=== PATIENT | female | born 1990 | race Caucasian/White ===

== ENCOUNTER 2018-02-17 08:10 | Inpatient (IN) | END 2018-02-20 22:05 | disposition home or self-care (01) | DRG 833 ==

== ENCOUNTER 2018-03-15 11:48 | Emergency (ER) | payer MEDICAID ==
[~2018-03-15] VITALS: Ht 167.6 cm; Wt 76.0 kg
[2018-03-15 11:57] VITALS: BP 133/71; PULSE 88; RESP 20; Ht 167.6 cm; Wt 76.0 kg
--- NOTE | 2018-03-15 16:21 | ERD ---
ER Documentation Chief Complaint Chief Complaint Complains of vag bleed and HPI Patient is a 27-year-old female, G4, P1, A2, presents to the ER for concerns of vaginal bleeding which started earlier today. Patient reports using paper tissues thus far. Patient denies any pads. Patient denies any blood clot passage. Patient denies any fevers or chills. Patient denies any pain. Patient denies dysuria, urgency, urgency or hematuria. Patient denies any nausea or vomiting. Patient states her last menstrual period was on 01/01/18. ROS All systems reviewed and are negative except as per history of present illness. Medications Home Meds No Active Prescriptions or Reported Meds Allergies Allergies: Coded Allergies: No Known Drug Allergy (Verified Allergy, Unknown, 02/17/18) PMhx/Soc Medical and Surgical Hx: pt denies Medical Hx, pt denies Surgical Hx Hx Alcohol Use: No Hx Substance Use: No Hx Tobacco Use: No Smoking Status: Never smoker Physical Exam Vitals Vital Signs Date Temp Pulse Resp B/P (MAP) Pulse Ox O2 O2 Flow FiO2 Time Delivery Rate 03/15/18 99.1 88 20 133/71 98 11:57 (91) Physical Exam GENERAL: Well-developed, well-nourished female. Appears in no acute distress. HEAD: Normocephalic, atraumatic. EYES: Pupils are equally reactive bilaterally. EOMs grossly intact. No conjunctival erythema. ENT: Moist mucous membranes. No uvula deviation. No kissing tonsils. NECK: Supple. No meningismus. Normal range of motion of the neck. LUNG: Clear to auscultation bilaterally. No rhonchi, wheezing, rales or coarse breath sounds. HEART: Regular rate and rhythm. No murmurs, rubs or gallops. ABDOMEN: Soft, nontender, and nondistended. Positive bowel sounds in all four quadrants. No rebound tenderness, no guarding. (-) McBurney's point tenderness. No CVA tenderness. EXTREMITIES: Equal pulses bilaterally. No peripheral clubbing, cyanosis or edema. No unilateral leg swelling. NEUROLOGIC: Alert and oriented. Moving all four extremities without any difficulty. Normal speech. Steady gait. SKIN: Normal color. Warm and dry. No rashes or lesions. Result Diagram: 03/15/18 1440 Results 24 hrs Laboratory Tests Test 03/15/18 14:40 White Blood Count 8.1 10^3/ul Red Blood Count 4.79 10^6/ul Hemoglobin 13.0 g/dl Hematocrit 39.3 % Mean Corpuscular Volume 82.0 fl Mean Corpuscular Hemoglobin 27.1 pg Mean Corpuscular Hemoglobin Concent 33.1 g/dl Red Cell Distribution Width 13.0 % Platelet Count 262 10^3/UL Mean Platelet Volume 9.6 fl Immature Granulocytes % 0.200 % Neutrophils % 72.1 % Lymphocytes % 19.0 % Monocytes % 7.4 % Eosinophils % 0.9 % Basophils % 0.4 % Nucleated Red Blood Cells % 0.0 /100WBC Immature Granulocytes # 0.020 10^3/ul Neutrophils # 5.8 10^3/ul Lymphocytes # 1.5 10^3/ul Monocytes # 0.6 10^3/ul Eosinophils # 0.1 10^3/ul Basophils # 0.0 10^3/ul Nucleated Red Blood Cells # 0.0 10^3/ul Urine Color YELLOW Urine Clarity CLEAR Urine pH 5.0 Urine Specific [place] 1.014 Urine Ketones NEGATIVE mg/dL Urine Nitrite NEGATIVE mg/dL Urine Bilirubin NEGATIVE mg/dL Urine Urobilinogen NEGATIVE mg/dL Urine Leukocyte Esterase NEGATIVE Reena/ul Urine Microscopic RBC 1 /HPF Urine Microscopic WBC 1 /HPF Urine Squamous Epithelial Cells FEW /HPF Urine Hemoglobin 2+ mg/dL Urine Glucose 1+ mg/dL Urine Total Protein NEGATIVE mg/dl Beta HCG, Quantitative 48231.0 mIU/ml Procedures/MDM ED COURSE: The patient was stable throughout ED course. I kept the patient and/or family informed of laboratory and diagnostic imaging results throughout the ED course. DIAGNOSTIC IMAGING: Read by radiologist. Patient: AKILAH CHAMBERS : 1990 Age: 27 Sex: F MR #: [id number] DOS: 03/15/18 0000 Ordering MD: KIRILL RASHID PA-C Location: [facility] Room/Bed: PROCEDURE: US OB. CLINICAL INDICATION: Vaginal bleeding. TECHNIQUE: Transabdominal sonographic evaluation of the uterus was performed. COMPARISON: Obstetrical sonogram dated 02/17/2018. FINDINGS: There is a single living intrauterine gestation. Mean sac diameter measures 39.4 mm. [place] rump length measures 31.7 mm. Estimated gestational age based on this examination is 9 weeks and 5 days +/- 5 days. Real time examination shows cardiac activity. heart rate is 157 beats per minute. Estimated date of confinement based on this examination is 10/13/2018. There is a 5 mm subchorionic hemorrhage. Right ovary measures 2.8 x 2.3 x 2.5 cm. Left ovary measures 2.1 x 1.8 x 2.1 cm. Normal vascular waveforms were sampled from both ovaries. There is no free pelvic fluid. IMPRESSION: 1. Single living intrauterine gestation with estimated gestational age of 9 weeks and 5 days +/- 5 days. 2. Small subchorionic hemorrhage. RPTAT:AAEE Physician Mike Date Time Electronically viewed and signed by Wolfgang Bell Physician on 03/15/2018 16:00 RM/ CC: KIRILL RASHID PA-C [id number] MEDICAL DECISION MAKING: This 27-year-old female, G4, P1, A2, presents to the ER for concerns of vaginal bleeding which started earlier today. Patient denies any blood clot passage.. Vital signs were reviewed. Patient was afebrile. Patient was hemodynamically stable. Urine test was positive. [place] 55370. Patient's blood type was noted to be O+. No indication for RhoGam. CBC showed no evidence of systemic infection or severe anemia. Pelvic ultrasound showed 1. Single living intrauterine gestation with estimated gestational age of 9 weeks and 5 days +/- 5 days. 2. Small subchorionic hemorrhage. Given these findings, the patients presentation is most consistent with threatened and small subchorionic hemorrhage.. I have a much lower clinical concern for ectopic , ruptured ectopic , molar , subchorionic hematoma, incomplete , complete , missed , placental abruption, placental previa, vasa previa, uterine rupture, anembyronic . Patient was advised she will need to follow-up with an ETL INFORMATICA DEVELOPER in the next 1-2 days. Patient stated that she did have an appointment tomorrow. DISCHARGE: At this time, patient is stable for discharge and outpatient management. I had a conversation at length with the patient about the concerns of vaginal bleeding during the 1st trimester of . Patient and/or family understands that her vaginal bleeding can be a normal finding or a sign of miscarriage. I have instructed the patient to follow-up with her OBGYN in 1-2 days for further monitoring including a repeat b-HCG level. I have instructed the patient to promptly return to the ER at any time for any new or worsening symptoms including increased pain, nausea, vomiting, continued bleeding, weakness, syncope or fever. The patient and/or family expressed understanding of and agreement with this plan. All questions were answered. Home care instructions were provided. Disclaimer: Inadvertent spelling and grammatical errors are likely due to EHR/dictation software use and do not reflect on the overall quality of patient care. Also, please note that the electronic time recorded on this note does not necessarily reflect the actual time of the patient encounter. Departure Diagnosis: Primary Impression: Vaginal bleeding in patient at less than 20 weeks ges... Condition: Stable Patient Instructions: Bleeding During Early Referrals: COMMUNITY CLINICS YOU HAVE RECEIVED A MEDICAL SCREENING EXAM AND THE RESULTS INDICATE THAT YOU DO NOT HAVE A CONDITION THAT REQUIRES URGENT TREATMENT IN THE EMERGENCY DEPARTMENT. FURTHER EVALUATION AND TREATMENT OF YOUR CONDITION CAN WAIT UNTIL YOU ARE SEEN IN YOUR DOCTORS OFFICE WITHIN THE NEXT 1-2 DAYS. IT IS YOUR RESPONSIBILITY TO MAKE AN APPOINTMENT FOR FOLOW-UP CARE. IF YOU HAVE A PRIMARY DOCTOR --you should call your primary doctor and schedule an appointment IF YOU DO NOT HAVE A PRIMARY DOCTOR YOU CAN CALL OUR PHYSICIAN REFERRAL HOTLINE AT IF YOU CAN NOT AFFORD TO SEE A PHYSICIAN YOU CAN CHOSE FROM THE FOLLOWING [facility] [address] [facility]. [facility] [address] [facility] [address] [facility]. [facility] [address] [facility]. [facility] [address] [facility]. [facility]. [address] [facility]. [facility] YOU HAVE RECEIVED A MEDICAL SCREENING EXAM AND THE RESULTS INDICATE THAT YOU DO NOT HAVE A CONDITION THAT REQUIRES URGENT TREATMENT IN THE EMERGENCY DEPARTMENT. FURTHER EVALUATION AND TREATMENT OF YOUR CONDITION CAN WAIT UNTIL YOU ARE SEEN IN YOUR DOCTORS OFFICE WITHIN THE NEXT 1-2 DAYS. IT IS YOUR RESPONSIBILITY TO MAKE AN APPOINTMENT FOR FOLOW-UP CARE. IF YOU HAVE A PRIMARY DOCTOR --you should call your primary doctor and schedule and appointment IF YOU DO NOT HAVE A PRIMARY DOCTOR YOU CAN CALL OUR PHYSICIAN REFERRAL HOTLINE AT . IF YOU CAN NOT AFFORD TO SEE A PHYSICIAN YOU CAN CHOSE FROM THE FOLLOWING [facility] INSTITUTIONS: [facility] [address] [place] [address] [facility] [address] [place] [address] [facility] [address] [place] [address] [employer] [address] [facility] [address] [place] [address] OFFICE FAX ALONZO SAHIKH [address] [place] [address] [facility] [address] [place] [address] VINICIO BAUTISTA [address] [facility], [address], [facility] [address] [address] [address] [place] [address] [facility] [address] [place] [address] [phone] [facility] [address] - [place] [address]MON [address], [place] [address] BRINDA PHELPS [address] [facility] [address] [place] [address] [address] [address] [place] [address] Additional Instructions: Call your primary care doctor TOMORROW for an appointment during the next 1-2 days.See the doctor sooner or return here if your condition worsens before your appointment time. Repeat beta-hCG advised in 2 days. Follow-up with your ETL INFORMATICA DEVELOPER. KIRILL RASHID PA-C Mar 15, 2018 16:21
== END 2018-03-15 16:32 | disposition home or self-care (01) ==
LOC: FTE 11:48
DX: O20.9 Hemorrhage in early pregnancy, unspecified (principal); Z3A.09 9 weeks gestation of pregnancy
CPT/HCPCS: 36415; 76801; 76817; 81001; 84702; 85025; 86900; 86901; Z7502

== ENCOUNTER 2018-07-14 15:28 | Outpatient (CLI) | payer MEDICAID, OTHER ==
[~2018-07-14] VITALS: Ht 157.5 cm; Wt 84.1 kg
[2018-07-14 17:35] VITALS: Ht 157.5 cm; Wt 84.1 kg
[2018-07-14] MEDS ORDERED: PNV11TAB PO (17:35)
[2018-07-14 17:36] VITALS: BP 100/56; PULSE 71; RESP 19
--- NOTE | 2018-07-15 00:57 | TRIAGE ---
OB Triage Datetime Report Generated by CPN: 07/15/2018 00:57 Datetime: 07/14/2018 23:06 Labor Evaluation Frequency: 0 Monitor Mode: External Pattern: Normal: <= 5 Contractions in 10 Minutes Heart Rate FHR Baseline Rate: 145 Monitor Mode: External US Variability: Moderate 6-25 bpm Accelerations: 15X15 Decelerations: None Datetime: 07/14/2018 23:00 Labor Evaluation Frequency: 0 Monitor Mode: External Pattern: Normal: <= 5 Contractions in 10 Minutes Heart Rate FHR Baseline Rate: 150 Monitor Mode: External US Variability: Moderate 6-25 bpm Accelerations: 15X15 Decelerations: None Category: Category I Datetime: 07/14/2018 22:42 Monitor Mode: External US Datetime: 07/14/2018 22:00 Monitor Mode: External Pattern: Normal: <= 5 Contractions in 10 Minutes Monitor Mode: External US Comments: LOSS OF CONTACT Datetime: 07/14/2018 21:00 Labor Evaluation Frequency: 0 Monitor Mode: External Pattern: Normal: <= 5 Contractions in 10 Minutes Heart Rate FHR Baseline Rate: 145 Monitor Mode: External US Variability: Moderate 6-25 bpm Accelerations: 10X10 Decelerations: None Category: Category I Datetime: 07/14/2018 20:00 Labor Evaluation Frequency: 0 Monitor Mode: External Pattern: Normal: <= 5 Contractions in 10 Minutes Heart Rate FHR Baseline Rate: 145 Monitor Mode: External US Variability: Moderate 6-25 bpm Accelerations: 10X10 Decelerations: None Datetime: 07/14/2018 19:28 Vaginal Exam Membrane Status: Intact Datetime: 07/14/2018 18:28 Labor Evaluation Frequency: 0 Monitor Mode: External Pattern: Normal: <= 5 Contractions in 10 Minutes Resting Tone Peck: Relaxed Heart Rate FHR Baseline Rate: 145 Monitor Mode: External US Variability: Moderate 6-25 bpm Accelerations: 15X15 Decelerations: None Category: Category I Datetime: 07/14/2018 17:54 Assessment Type: Triage Maternal Assessment Level of Consciousness: Fully Conscious DTR's/Clonus: DTRs 2+; No Clonus Headache: Denies Blurred Vision: No Respiratory Effort: Unlabored; Regular Rhythm; Equal Expansion Breath Sounds, Left: Clear and Equal Breath Sounds, Right: Clear and Equal Nausea/Vomiting: Denies RUQ Epigastric Pain: Denies Lower Extremities Edema: None Degree: None Upper Extremities Edema: None Degree: None Facial Edema: None Fall Risk Assessment History of Falling: (0) No Secondary Diagnosis: (0) No Ambulatory Aid: (0) Bedrest/Nurse Assist IV Therapy: (0) No Gait: (0) Normal/Bedrest/Immobile Mental Status: (0) Oriented to Own Ability Fall Score: 0 Fall Risk Score Definition: No Risk: No action required Datetime: 07/14/2018 17:53 Time of Arrival: 07/14/2018 15:09 EGA: 27.4 Arrived By: Ambulatory Arrived From: Home Chief Complaint: dizziness Movement: Decreased Contractions: Denies/Absent Rupture of Membranes: Denies Vaginal Bleeding: None Vaginal Discharge: Denies Recent Sexual Intercouse: Denies Abdominal Trauma: Not Applicable Patient Complaints: Other Time Provider Notified: 07/14/2018 18:01 Provider Notified: dr turner Initial Plan: nst bpp, EKG Datetime: 07/14/2018 17:52 Labor Evaluation Frequency: 0 Pattern: Normal: <= 5 Contractions in 10 Minutes Resting Tone Peck: Relaxed Heart Rate FHR Baseline Rate: 140 Monitor Mode: External US Variability: Moderate 6-25 bpm Accelerations: 15X15 Decelerations: None Category: Category I Datetime: 02/20/2018 19:58 Bedside Blood Glucose: 143 Datetime: 02/20/2018 19:20 Assessment Type: Ongoing Assessment Maternal Assessment Level of Consciousness: Fully Conscious Headache: Denies Blurred Vision: No Respiratory Effort: Unlabored; Regular Rhythm; Equal Expansion Nausea/Vomiting: Denies RUQ Epigastric Pain: Denies Lower Extremities Edema: None Upper Extremities Edema: None Facial Edema: None Fall Risk Assessment History of Falling: (0) No Secondary Diagnosis: (0) No Ambulatory Aid: (0) Bedrest/Nurse Assist IV Therapy: (0) No Gait: (0) Normal/Bedrest/Immobile Mental Status: (0) Oriented to Own Ability Fall Score: 0 Fall Risk Score Definition: No Risk: No action required Datetime: 02/20/2018 19:17 Temperature Route: Oral Pain Assessment Pain Scale: 0 Datetime: 02/20/2018 17:57 Bedside Blood Glucose: 156 Datetime: 02/20/2018 17:17 Bedside Blood Glucose: 156 Datetime: 02/20/2018 14:57 Bedside Blood Glucose: 206 Datetime: 02/20/2018 12:00 Bedside Blood Glucose: 75 Datetime: 02/20/2018 10:28 Bedside Blood Glucose: 119 Datetime: 02/20/2018 07:30 Maternal Assessment Level of Consciousness: Fully Conscious DTR's/Clonus: DTRs 2+; No Clonus Headache: Denies Blurred Vision: No Respiratory Effort: Unlabored; Regular Rhythm; Equal Expansion Breath Sounds, Left: Clear and Equal Breath Sounds, Right: Clear and Equal Nausea/Vomiting: Denies RUQ Epigastric Pain: Denies Facial Edema: None Bedside Blood Glucose: 115 Fall Risk Assessment History of Falling: (0) No Secondary Diagnosis: (0) No Ambulatory Aid: (0) Bedrest/Nurse Assist Gait: (0) Normal/Bedrest/Immobile Mental Status: (0) Oriented to Own Ability Datetime: 02/19/2018 20:59 Bedside Blood Glucose: 137 Datetime: 02/19/2018 20:00 Assessment Type: Ongoing Assessment Maternal Assessment Level of Consciousness: Fully Conscious Headache: Denies Blurred Vision: No Respiratory Effort: Unlabored; Regular Rhythm; Equal Expansion Nausea/Vomiting: Denies RUQ Epigastric Pain: Denies Lower Extremities Edema: None Upper Extremities Edema: None Facial Edema: None Fall Risk Assessment History of Falling: (0) No Secondary Diagnosis: (0) No Ambulatory Aid: (0) Bedrest/Nurse Assist IV Therapy: (0) No Gait: (0) Normal/Bedrest/Immobile Mental Status: (0) Oriented to Own Ability Fall Score: 0 Fall Risk Score Definition: No Risk: No action required Datetime: 02/19/2018 19:55 Temperature Route: Oral Pain Assessment Pain Scale: 0 Datetime: 02/19/2018 18:34 Stage of : Antepartum Maternal Assessment Level of Consciousness: Fully Conscious Headache: Denies Nausea/Vomiting: Denies Pain Presence: None/Denies Datetime: 02/19/2018 17:59 Maternal Assessment Level of Consciousness: Fully Conscious Headache: Denies Blurred Vision: No Respiratory Effort: Unlabored Nausea/Vomiting: Denies Bedside Blood Glucose: 133 Datetime: 02/19/2018 16:54 Stage of : Antepartum Maternal Assessment Level of Consciousness: Fully Conscious Headache: Denies Nausea/Vomiting: Denies Temperature Route: Oral Contraction Comments: pt. denies Pain Assessment Pain Scale: 0 Pain Presence: None/Denies Vaginal Bleeding: None Datetime: 02/19/2018 16:00 Stage of : Antepartum Maternal Assessment Level of Consciousness: Fully Conscious Headache: Denies Nausea/Vomiting: Denies Pain Presence: None/Denies Datetime: 02/19/2018 15:01 Maternal Assessment Level of Consciousness: Fully Conscious Headache: Denies Blurred Vision: No Respiratory Effort: Unlabored Nausea/Vomiting: Denies Bedside Blood Glucose: 171 Pain Presence: None/Denies Datetime: 02/19/2018 13:05 Maternal Assessment Level of Consciousness: Fully Conscious Headache: Denies Blurred Vision: No Respiratory Effort: Unlabored Nausea/Vomiting: Denies RUQ Epigastric Pain: Denies Bedside Blood Glucose: 116 Pain Presence: None/Denies Datetime: 02/19/2018 13:00 Stage of : Antepartum Maternal Assessment Level of Consciousness: Fully Conscious Headache: Denies Nausea/Vomiting: Denies Pain Presence: None/Denies Datetime: 02/19/2018 12:05 Stage of : Antepartum Maternal Assessment Level of Consciousness: Fully Conscious Headache: Denies Nausea/Vomiting: Denies Pain Presence: None/Denies Datetime: 02/19/2018 11:00 Stage of : Antepartum Maternal Assessment Level of Consciousness: Fully Conscious Headache: Denies Nausea/Vomiting: Denies Pain Presence: None/Denies Datetime: 02/19/2018 10:46 Maternal Assessment Level of Consciousness: Fully Conscious Headache: Denies Blurred Vision: No Respiratory Effort: Unlabored Nausea/Vomiting: Denies Bedside Blood Glucose: 164 Resting Tone Peck: Relaxed Pain Presence: None/Denies Datetime: 02/19/2018 09:30 Stage of : Antepartum Maternal Assessment Level of Consciousness: Fully Conscious Headache: Denies Nausea/Vomiting: Denies Pain Presence: None/Denies Datetime: 02/19/2018 08:53 Pain Presence: None/Denies Datetime: 02/19/2018 08:04 Maternal Assessment Level of Consciousness: Fully Conscious Headache: Denies Blurred Vision: No Respiratory Effort: Unlabored Breath Sounds, Left: Clear and Equal Breath Sounds, Right: Clear and Equal Nausea/Vomiting: Denies RUQ Epigastric Pain: Denies Bedside Blood Glucose: 146 Pain Presence: None/Denies Datetime: 02/19/2018 07:16 Assessment Type: Ongoing Assessment Datetime: 02/19/2018 06:13 Stage of : Antepartum Datetime: 02/19/2018 06:10 Stage of : Antepartum Datetime: 02/19/2018 06:04 Stage of : Antepartum Datetime: 02/19/2018 05:03 Stage of : Antepartum Temperature Route: Oral Pain Presence: None/Denies Pain Type: N/A Pain Assessment Comments: PT SLEEPING BUT EASILY AROUSED Datetime: 02/19/2018 02:00 Stage of : Antepartum Pain Presence: None/Denies Pain Type: N/A Pain Assessment Comments: PT SLEEPING WITH EVEN UNLABORED BREATHING Datetime: 02/19/2018 00:12 Stage of : Antepartum Pain Presence: None/Denies Pain Type: N/A Pain Assessment Comments: Pt denies any needs at this time. Datetime: 02/18/2018 22:00 Stage of : Antepartum Pain Presence: None/Denies Pain Type: N/A Pain Assessment Comments: PT DENIES ANY NEEDS AT THIS TIME Datetime: 02/18/2018 19:55 Stage of : Antepartum Datetime: 02/18/2018 19:45 Stage of : Antepartum Bedside Blood Glucose: 202 Datetime: 02/18/2018 19:42 Stage of : Antepartum Assessment Type: Ongoing Assessment Maternal Assessment Level of Consciousness: Fully Conscious DTR's/Clonus: DTRs 2+; No Clonus Headache: Denies Blurred Vision: No Respiratory Effort: Unlabored; Regular Rhythm; Equal Expansion Breath Sounds, Left: Clear and Equal Breath Sounds, Right: Clear and Equal Nausea/Vomiting: Denies RUQ Epigastric Pain: Denies Lower Extremities Edema: None Degree: None Upper Extremities Edema: None Degree: None Facial Edema: None Temperature Route: Oral Fall Risk Assessment History of Falling: (0) No Secondary Diagnosis: (0) No Ambulatory Aid: (0) Bedrest/Nurse Assist IV Therapy: (0) No Gait: (0) Normal/Bedrest/Immobile Mental Status: (0) Oriented to Own Ability Fall Score: 0 Fall Risk Score Definition: No Risk: No action required Pain Presence: None/Denies Datetime: 02/18/2018 18:31 Stage of : Antepartum Maternal Assessment Level of Consciousness: Fully Conscious Headache: Denies Nausea/Vomiting: Denies RUQ Epigastric Pain: Denies Pain Presence: None/Denies Datetime: 02/18/2018 17:41 Stage of : Antepartum Maternal Assessment Level of Consciousness: Fully Conscious Headache: Denies Nausea/Vomiting: Denies Pain Assessment Pain Scale: 0 Pain Presence: None/Denies Vaginal Bleeding: None Datetime: 02/18/2018 16:00 Stage of : Antepartum Maternal Assessment Level of Consciousness: Fully Conscious Headache: Denies Nausea/Vomiting: Denies RUQ Epigastric Pain: Denies Pain Presence: None/Denies Datetime: 02/18/2018 15:00 Stage of : Antepartum Maternal Assessment Level of Consciousness: Fully Conscious Headache: Denies Nausea/Vomiting: Denies RUQ Epigastric Pain: Denies Pain Presence: None/Denies Datetime: 02/18/2018 14:49 Stage of : Antepartum Datetime: 02/18/2018 14:00 Stage of : Antepartum Maternal Assessment Level of Consciousness: Fully Conscious Headache: Denies Nausea/Vomiting: Denies RUQ Epigastric Pain: Denies Pain Presence: None/Denies Datetime: 02/18/2018 13:41 Maternal Assessment Level of Consciousness: Fully Conscious Headache: Denies Blurred Vision: No Respiratory Effort: Unlabored Nausea/Vomiting: Denies Pain Presence: None/Denies Datetime: 02/18/2018 13:00 Stage of : Antepartum Maternal Assessment Level of Consciousness: Fully Conscious Headache: Denies Nausea/Vomiting: Denies RUQ Epigastric Pain: Denies Pain Presence: None/Denies Datetime: 02/18/2018 11:57 Stage of : Antepartum Maternal Assessment Level of Consciousness: Fully Conscious Headache: Denies Nausea/Vomiting: Denies RUQ Epigastric Pain: Denies Pain Assessment Pain Scale: 0 Pain Presence: None/Denies Vaginal Bleeding: None Datetime: 02/18/2018 11:19 Stage of : Antepartum Maternal Assessment Level of Consciousness: Fully Conscious Headache: Denies Nausea/Vomiting: Denies Pain Assessment Pain Scale: 0 Pain Presence: None/Denies Vaginal Bleeding: None Datetime: 02/18/2018 10:09 Stage of : Antepartum Maternal Assessment Level of Consciousness: Fully Conscious Headache: Denies Nausea/Vomiting: Denies RUQ Epigastric Pain: Denies Pain Presence: None/Denies Datetime: 02/18/2018 09:25 Stage of : Antepartum Maternal Assessment Level of Consciousness: Fully Conscious Headache: Denies Nausea/Vomiting: Denies RUQ Epigastric Pain: Denies Pain Presence: None/Denies Datetime: 02/18/2018 07:44 Stage of : Antepartum Maternal Assessment Level of Consciousness: Fully Conscious Headache: Denies Nausea/Vomiting: Denies RUQ Epigastric Pain: Denies Temperature Route: Oral Bedside Blood Glucose: 191 Resting Tone Peck: Relaxed Comments: ega 6.5 Pain Assessment Pain Scale: 0 Pain Presence: None/Denies Vaginal Bleeding: None Datetime: 02/18/2018 07:12 Stage of : Antepartum Maternal Assessment Level of Consciousness: Fully Conscious Headache: Denies Blurred Vision: No Respiratory Effort: Unlabored Nausea/Vomiting: Denies RUQ Epigastric Pain: Denies Pain Presence: None/Denies Datetime: 02/18/2018 06:10 Stage of : Antepartum Datetime: 02/18/2018 05:09 Stage of : Antepartum Temperature Route: Oral Pain Presence: None/Denies Pain Type: N/A Pain Assessment Comments: PT DENIES ANY NEEDS AT THIS TIME Datetime: 02/18/2018 04:00 Stage of : Antepartum Pain Presence: None/Denies Pain Type: N/A Pain Assessment Comments: PT SLEEPING BUT EASILY AROUSED Datetime: 02/18/2018 02:20 Stage of : Antepartum Pain Presence: None/Denies Pain Type: N/A Pain Assessment Comments: PT SLEEPING BUT EASILY AROUSED. PT DENIES ANY NEEDS AT THIS TIME. Datetime: 02/18/2018 00:45 Stage of : Antepartum Pain Presence: None/Denies Pain Type: N/A Pain Assessment Comments: PT SLEEPING WITH EVEN UNLABORED BREATHING. Datetime: 02/17/2018 23:21 Stage of : Antepartum Temperature Route: Oral Pain Presence: None/Denies Pain Type: N/A Pain Assessment Comments: PT DENIES ANY NEEDS AT THIS TIME. Datetime: 02/17/2018 22:26 Stage of : Antepartum Datetime: 02/17/2018 22:17 Stage of : Antepartum Bedside Blood Glucose: 141 Datetime: 02/17/2018 20:15 Stage of : Antepartum Datetime: 02/17/2018 20:03 Stage of : Antepartum Bedside Blood Glucose: 202 Datetime: 02/17/2018 19:59 Stage of : Antepartum Assessment Type: Ongoing Assessment Maternal Assessment Level of Consciousness: Fully Conscious DTR's/Clonus: DTRs 2+; No Clonus Headache: Denies Blurred Vision: No Respiratory Effort: Unlabored; Regular Rhythm; Equal Expansion Breath Sounds, Left: Clear and Equal Breath Sounds, Right: Clear and Equal Nausea/Vomiting: Denies RUQ Epigastric Pain: Denies Lower Extremities Edema: None Degree: None Upper Extremities Edema: None Degree: None Facial Edema: None Temperature Route: Oral Fall Risk Assessment History of Falling: (0) No Secondary Diagnosis: (0) No Ambulatory Aid: (0) Bedrest/Nurse Assist IV Therapy: (0) No Gait: (0) Normal/Bedrest/Immobile Mental Status: (0) Oriented to Own Ability Fall Score: 0 Fall Risk Score Definition: No Risk: No action required Pain Presence: None/Denies Pain Type: N/A Datetime: 02/17/2018 19:30 Stage of : Antepartum Datetime: 02/17/2018 10:51 EGA: 6.4 Datetime: 02/17/2018 10:50 EGA: -3.2 Datetime: 02/17/2018 08:54 Assessment Type: Admission Assessment Vaginal Bleeding: None Maternal Assessment Level of Consciousness: Fully Conscious DTR's/Clonus: DTRs 2+; No Clonus Headache: Denies Blurred Vision: No Respiratory Effort: Unlabored; Regular Rhythm; Equal Expansion Breath Sounds, Left: Clear and Equal Breath Sounds, Right: Clear and Equal Nausea/Vomiting: Denies RUQ Epigastric Pain: Denies Facial Edema: None Fall Risk Assessment History of Falling: (0) No Secondary Diagnosis: (0) No Ambulatory Aid: (0) Bedrest/Nurse Assist IV Therapy: (0) No Gait: (0) Normal/Bedrest/Immobile Mental Status: (0) Oriented to Own Ability Fall Score: 0 Fall Risk Score Definition: No Risk: No action required Pain Assessment Pain Scale: 0 Datetime: 02/17/2018 08:51 Time of Arrival: 02/17/2018 08:25 Arrived By: Ambulatory
--- NOTE | 2018-07-15 08:58 | PN ---
Triage Information Date/Time 07/14/2018 Reason for visit: DFM Weeks of Gestation 27 weeks and 4 days /Para 4 para 1 Diabetes: none Hypertention: none Additional information 27-year-old G4, P1 with IUP at 27 weeks and 4 days presents with complaint of decreased movement, dizziness, numbness and tingling around the mouth and hands. Objective Vital Signs Date Temp Pulse Resp B/P (MAP) Pulse Ox O2 O2 Flow FiO2 Time Delivery Rate 07/14/18 97.7 71 19 100/56 Room Air 17:36 (71) Heart Rate: 130's Contractions: None Exam General Appearance: Alert and oriented x4 does not appear to be in any acute distress Abdomen: Soft, gravid, fundal height consider gestational age, no tenderness, no rebound tenderness, no guarding, no rigidity Neuro exam: All 12 cranial nerves are within normal limits Extremities:: No calf tenderness, no click no edema no cord palpable Results/Medications Result Diagram: 07/14/18 1823 07/14/18 1823 Results 24 hrs Laboratory Tests Test 07/14/18 17:00 07/14/18 18:23 Urine Color YELLOW Urine Clarity SLIGHTLY CLOUDY A Urine pH 6.0 Urine Specific [place] 1.020 Urine Ketones TRACE A Urine Nitrite NEGATIVE Urine Bilirubin NEGATIVE Urine Urobilinogen NEGATIVE Urine Leukocyte Esterase NEGATIVE Urine Microscopic RBC 2 Urine Microscopic WBC 2 Urine Bacteria FEW A Urine Mucus FEW A Urine Hemoglobin NEGATIVE Urine Glucose 1+ H Urine Total Protein 2+ H White Blood Count 10.8 # Red Blood Count 4.17 L Hemoglobin 11.5 L Hematocrit 34.8 L Mean Corpuscular Volume 83.5 Mean Corpuscular Hemoglobin 27.6 L Mean Corpuscular Hemoglobin Concent 33.0 Red Cell Distribution Width 12.4 Platelet Count 330 # Mean Platelet Volume 9.6 Immature Granulocytes % 0.500 H Neutrophils % 78.1 H Lymphocytes % 16.0 Monocytes % 4.7 Eosinophils % 0.4 Basophils % 0.3 Nucleated Red Blood Cells % 0.0 Immature Granulocytes # 0.050 H Neutrophils # 8.5 H Lymphocytes # 1.7 Monocytes # 0.5 Eosinophils # 0.0 Basophils # 0.0 Nucleated Red Blood Cells # 0.0 Sodium Level 138 Potassium Level 4.2 Chloride Level 108 Carbon Dioxide Level 22 Anion Gap 8 Blood Urea Nitrogen 10 Creatinine 0.47 Est Glomerular Filtrat Rate mL/min > 60 Glucose Level 114 Uric Acid 5.0 Calcium Level 8.9 Total Bilirubin 0.2 Direct Bilirubin 0.00 Indirect Bilirubin 0.2 Aspartate Amino Transf (AST/SGOT) 32 Alanine Aminotransferase (ALT/SGPT) 24 Alkaline Phosphatase 153 H Total Protein 7.2 Albumin 3.4 Globulin 3.80 H Albumin/Globulin Ratio 0.89 Imaging Results PROCEDURE: US OB. CLINICAL INDICATION: Syncope TECHNIQUE: Multiple sonographic images of the pelvis were obtained. The images were reviewed on a PACS workstation. COMPARISON: 03/15/2018 FINDINGS: There is a single live intrauterine . cardiac activity is identi fied at a rate of 140 beats per minute. presentation is cephalic. Placenta is anterior grade 1. Biophysical profile score is as follows: Breathing 2 Movements 2 Tone 2 Fluid volume 2 Amniotic fluid index = 11.8 cm Total biophysical profile score = 8/8 IMPRESSION: Biophysical profile score = 8/8 RPTAT: HH Disposition: Discharge Assessment/Plan IUP at 27 weeks and 4 days Dizziness, numbness, unclear etiology. Symptoms resolved. No evidence of PIH. Blood pressure during monitoring are all normal. PIH panel were negative. Patient was given strict labor precaution, kick count precaution and follow-up with primary OB office within 1 to 2 days after discharge from the hospital All questions were answered to patient with satisfaction. Patient verbalized understanding. She understands importance of follow-up within 2 days with OB office for follow-up assessment. Currently asymptomatic and all symptoms resolved. No evidence of neurological symptoms. She was discharged home in stable condition. EUNICE MONSON MD July 15, 2018 08:58
--- NOTE | 2018-07-15 19:11 | RADRPT ---
Vent Rate: 78 bpm RR Interval: 0 msec WY Interval: 136 msec QRS Duration: 82 msec QT Interval: 392 msec QTC Interval: 446 msec P-R-T [place]: 34 - 39 - 21 degrees Normal sinus rhythm Normal ECG Electronically Signed By: Sarwat Willis
== END 2018-07-14 23:15 | disposition home or self-care (01) ==
LOC: OBT 15:28 → L-D 15:29 → OBT 23:15
PROVIDERS: ATTEND Obstetrics & Gynecology
DX: O36.8120 Decreased fetal movements, second trimester, not applicable or unspecified (principal); O26.892 Other specified pregnancy related conditions, second trimester; R42 Dizziness and giddiness; R20.0 Anesthesia of skin; R20.2 Paresthesia of skin; Z3A.27 27 weeks gestation of pregnancy
CPT/HCPCS: 76818; 80053; 81001; 84560; 85025; 93005; Z7500; G0463

== ENCOUNTER 2018-08-30 21:17 | Outpatient (CLI) | payer OTHER ==
[~2018-08-30] VITALS: Ht 157.5 cm; Wt 85.7 kg
[~2018-08-30 21:17] MED LIST: PNV11TAB PO
[2018-08-30 22:00] VITALS: BP 106/57; PULSE 70; RESP 18
[2018-08-30] MEDS ORDERED: CALC600T24 PO (23:00)
[2018-08-30] MEDS ORDERED: NOVO7030 SC ×2 (23:00)
[2018-08-30] MEDS ORDERED: FERR134T PO (23:00)
[2018-08-30] MEDS ORDERED: LANT3I SC ×2 (23:00)
--- NOTE | 2018-08-30 23:40 | PN ---
Triage Information Date/Time August 30, 2018 Reason for visit: DFM Weeks of Gestation 34w 2d /Para 4/1 Diabetes: pre-gestational (but just diagnosed very early in this ) Diabetes management: insulin controlled Hypertention: none Additional information PMHx: DM. PSHx: x 1. D and C x 1 for a missed AB. NKDA. Objective Vital Signs Date Temp Pulse Resp B/P (MAP) Pulse Ox O2 O2 Flow FiO2 Time Delivery Rate 08/30/18 98.4 70 18 106/57 Room Air 22:00 (73) Heart Rate: 130's Heart Rate Comments Accels to 170 bpm. No decels. Contractions: None Results/Medications Results 24 hrs Laboratory Tests Test 08/30/18 21:20 Urine Color COLORLESS Urine Clarity CLEAR Urine pH 6.0 Urine Specific [place] 1.002 L Urine Ketones NEGATIVE Urine Nitrite NEGATIVE Urine Bilirubin NEGATIVE Urine Urobilinogen NEGATIVE Urine Leukocyte Esterase NEGATIVE Urine Hemoglobin NEGATIVE Urine Glucose NEGATIVE Urine Total Protein NEGATIVE Imaging Results BPP 8/8 with an WINTER of 7.9 cm. VTX. Disposition: Discharge Assessment/Plan A: IUP at 34w 2d. DM on insulin. Decreased movement. P: D/C home. kick counts reviewed with pt. Pt had clinic appts on and [facility] clinic appts on Tuesdays and Fridays so she has an appt tomorrow afternoon at 1400. SANJU WILSON MD Aug 30, 2018 23:40
--- NOTE | 2018-08-30 23:41 | TRIAGE ---
OB Triage Datetime Report Generated by CPN: 08/30/2018 23:41 Datetime: 08/30/2018 22:00 Time of Arrival: 08/30/2018 21:10 EGA: 34.2 Arrived By: Ambulatory Arrived From: Home Chief Complaint: c/s x1 w/ Type 2 DM states baby has moved very little since Thursday Movement: Decreased Contractions: Denies/Absent Rupture of Membranes: Denies Vaginal Bleeding: None Vaginal Discharge: Denies Recent Sexual Intercouse: Denies Abdominal Trauma: Not Applicable Patient Complaints: None Time Provider Notified: 08/30/2018 21:30 Provider Notified: Dr Kirby Initial Plan: EFM,BPP,UA,URINE CULTURE Datetime: 07/14/2018 17:54 Fall Risk Assessment Fall Score: 0 Fall Risk Score Definition: No Risk: No action required Datetime: 07/14/2018 17:53 EGA: 27.4 Datetime: 02/20/2018 19:20 Fall Risk Assessment Fall Score: 0 Fall Risk Score Definition: No Risk: No action required Datetime: 02/19/2018 20:00 Fall Risk Assessment Fall Score: 0 Fall Risk Score Definition: No Risk: No action required Datetime: 02/18/2018 19:42 Fall Risk Assessment Fall Score: 0 Fall Risk Score Definition: No Risk: No action required Datetime: 02/17/2018 19:59 Fall Risk Assessment Fall Score: 0 Fall Risk Score Definition: No Risk: No action required Datetime: 02/17/2018 10:51 EGA: 6.4 Datetime: 02/17/2018 10:50 EGA: -3.2 Datetime: 02/17/2018 08:54 Fall Risk Assessment Fall Score: 0 Fall Risk Score Definition: No Risk: No action required
== END 2018-08-30 23:34 | disposition home or self-care (01) ==
LOC: OBT 21:17 → L-D 21:18 → OBT 23:34
PROVIDERS: ATTEND Obstetrics & Gynecology
DX: O36.8130 Decreased fetal movements, third trimester, not applicable or unspecified (principal); O24.113 Pre-existing type 2 diabetes mellitus, in pregnancy, third trimester; E11.9 Type 2 diabetes mellitus without complications; Z79.4 Long term (current) use of insulin; O26.893 Other specified pregnancy related conditions, third trimester; R10.9 Unspecified abdominal pain; Z3A.34 34 weeks gestation of pregnancy
CPT/HCPCS: 76818; 81003; 87086; Z7500; G0463

== ENCOUNTER 2018-10-04 12:00 | Inpatient (IN) | payer OTHER ==
[~2018-10-04 12:00] MED LIST changes: +ACET325T33 PO; +CALC600T24 PO; +FERR134T PO; +IBUP800T48 PO; +LANT3I SC; +METF500T3 PO; +NOVO7030 SC
--- NOTE | 2018-10-04 12:03 | NSTRPT ---
NST Information Datetime Report Generated by CPN: 10/04/2018 12:03 Datetime: 10/01/2018 10:40 NST Information EGA: 38.6 Test Number: 13 Time on Monitor: 10/01/2018 11:07 Time off Monitor: 10/01/2018 11:29 NST Duration (Min): 22 Reason for NST: Diabetes Mellitus; Other Reason for NST Other: TYPE II Test and Monitor Explained: Monitor Explained; Test Explained; Verbalized Understanding Pulse: 69 Resp: 18 SBP: 115 DBP: 55 Test Evaluation NST Interventions: None Patient States Movement: Present Contraction Frequency: Uterine Irritability FHR Baseline : 150 Variability: Moderate 6-25bpm Accelerations: 15X15 Decelerations: None FHR Category: Category I NST Results: Reactive Comments: PT TO U/S; WINTER 12.5; Cephalic FBS=86 Electronically Signed By E-Signature: with User ID: [id number] Datetime: 09/28/2018 10:39 NST Information EGA: 38.3 NST Duration (Min): 29 Datetime: 09/24/2018 08:26 NST Information EGA: 37.6 NST Duration (Min): 47 Datetime: 09/21/2018 08:19 NST Information EGA: 37.3 NST Duration (Min): 29 Datetime: 09/17/2018 10:56 NST Information EGA: 36.6 NST Duration (Min): 24 Datetime: 09/14/2018 10:27 NST Information EGA: 36.3 NST Duration (Min): 21 Datetime: 09/10/2018 10:08 NST Information EGA: 35.6 NST Duration (Min): 39 Datetime: 09/07/2018 09:31 NST Information EGA: 35.3 NST Duration (Min): 20 Datetime: 09/03/2018 09:01 NST Information EGA: 34.6 NST Duration (Min): 30 Datetime: 08/31/2018 14:19 NST Information EGA: 34.3 NST Duration (Min): 21 Datetime: 08/24/2018 08:41 NST Information EGA: 33.3 NST Duration (Min): 20 Datetime: 08/20/2018 08:18 NST Information EGA: 32.6 NST Duration (Min): 33 Datetime: 08/17/2018 09:49 NST Information EGA: 32.3 NST Duration (Min): 40
[2018-10-04] MEDS ORDERED: MISOPROSTOL 200 MCG TAB PR PRN ×2 (12:30→20:00)
[2018-10-04] MEDS ORDERED: OXYTOCIN 30 UNITS/LR 500 ML IV SCH (12:30)
[2018-10-04] MEDS ORDERED: CARBOPROST 250 MCG INJ IM PRN ×2 (12:30→20:00)
[2018-10-04] MEDS ORDERED: CEFAZOLIN 2 GM/50 ML (PMX) 50 ML IVPB SCH (12:30)
[2018-10-04] MEDS ORDERED: OXYTOCIN 30 UNITS/LR 500 ML IV PRN ×2 (12:30→20:00)
[2018-10-04] MEDS ORDERED: METHYLERGONOVINE 0.2 MG INJ IM PRN ×2 (12:30→20:00)
[2018-10-04] MEDS: LACTATED RINGER'S 1,000 ML IV SCH (12:54)
--- NOTE | 2018-10-04 15:02 | PREAC ---
Date/Time of Note Date/Time of Note DATE: 10/04/18 TIME: 15:00 Anesthesia Eval and Record Evaluation Time Pre-Procedure Interview DATE: 10/04/18 TIME: 15:00 Age 28 Sex female NPO: 8 hrs Preoperative diagnosis IUP Planned procedure Repeat Csection Past Medical History Past Medical History: Includes Endo: Diabetes GI: Morbid obesity : : Surgery & Anesthesia Issues No known issue Meds Anticoagulation: No Beta Jn within 24 hr: No Reason Beta Jn not given: Pt. not on B-Jn Reported Medications Insulin Glargine* (Lantus*) 100 Unit/Ml Soln, 14 UNIT SC AC DINNER, #1 VIAL 08/30/18 Insulin Glargine* (Lantus*) 100 Unit/Ml Soln, 12 UNIT SC AC BREAKFAST, #1 VIAL 08/30/18 Insulin Isophan/Regular (Humulin 70/30) 100 Units/Ml Susp, 24 UNIT SC HS, EA 08/30/18 Insulin Isophan/Regular (Humulin 70/30) 100 Units/Ml Susp, 22 UNIT SC AC BREAKFAST, EA 08/30/18 Ferrous Sulfate (Iron) 134 Mg Tablet, 134 MG PO DAILY, TAB 08/30/18 Calcium Carbonate* (Calcium Carbonate*) 600 MG Ca Tab, 600 MG PO DAILY, TAB 08/30/18 [id number] ( ) 1 Each Tablet, 1 TAB PO DAILY, TAB 07/14/18 Current Medications Lactated Ringer's 1,000 ml @ 125 mls/hr Q8H IV Last administered on 10/04/18at 12:54; Admin Dose 125 MLS/HR; Start 10/04/18 at 12:16 Cefazolin Sodium/ Dextrose 50 ml @ 100 mls/hr ONCE IVPB ; Start 10/04/18 at 12:30 Oxytocin/Lactated Ringer's 500 ml @ 125 mls/hr POST IV ; Start 10/04/18 at 12:30 Oxytocin/Lactated Ringer's 500 ml @ 0 mls/hr ONCE PRN IV .VAGINAL BLEEDING; Start 10/04/18 at 12:30 Methylergonovine Maleate (Methergine) 0.2 mg ONCE PRN IM .VAGINAL BLEEDING; Start 10/04/18 at 12:30 Carboprost Tromethamine (Hemabate) 250 mcg ONCE PRN IM .VAGINAL BLEEDING; Start 10/04/18 at 12:30 Misoprostol (Cytotec) 1,000 mcg ONCE PRN HI .VAGINAL BLEEDING; Start 10/04/18 at 12:30 Meds reviewed: Yes Allergies Coded Allergies: No Known Drug Allergy (Verified Allergy, Unknown, 08/30/18) Allergies Reviewed: Yes Labs/Studies Labs Reviewed: Reviewed by anesthesiologist Result Diagram: 10/04/18 1300 10/04/18 1300 Laboratory Tests 10/04/18 13:00 Blood Bank Test 10/04/18 13:00 Antibody Screen NEGATIVE Blood Type O POSITIVE Rh Immune Globulin Candidate NO test: Positive Studies: ECG Pre-procedure Exam Last vitals BP:112/56, P:78, Spo2:100%, T:98,9 Airway: Adequate mouth opening, Adequate thyromental dist Mallampati: Mallampati II Teeth: Normal Lung: Normal Heart: Normal ASA Physical Status ASA physical status: 3 Emergency: None Planned Anesthetic Neuraxial: Spinal Planned Pain Management Sub-arachniod narcotics, Parenteral pain med Pre-operative Attestations Prior to commencing anesthesia and surgery, the patient was re-evaluated, there was verification of: *The patient's identity *The results of appropriate recent lab work and preoperative vital signs *The above evaluation not changing prior to induction *Anesthetic plan, risk benefits, alternative and complications discussed with patient/family; questions answered; patient/family understands, accepts and wishes to proceed. NICOLE ADLER MD Oct 04, 2018 15:02
[2018-10-04] MEDS ORDERED: OXYTOCIN 30 UNITS/LR 500 ML BAG IV ONE (16:00)
[2018-10-04] MEDS ORDERED: ONDANSETRON 4 MG INJ ONE (16:04)
[2018-10-04] MEDS ORDERED: morphine SULFATE/PF (10 MG/10 ML) INJ ONE (16:04)
[2018-10-04] MEDS ORDERED: OXYTOCIN 10 UNIT INJ ONE (16:04)
--- NOTE | 2018-10-04 17:30 | HP ---
Date/Time of Note Date/Time of Note DATE: 10/04/18 TIME: 17:24 OB - History Hx of Present Free Text/Dictation 28-year-old female 4 para 1 at 39 weeks and 2 days gestation admitted for repeat section Last Menstrual Period: Jan 02, 2018 Estimated Due Date: Oct 09, 2018 : 4 Para: 1 Spontaneous : 2 Care: Good Care Ultrasounds: Normal mid trimester US Obstetrical Complications: None Medical Complications: None, Respiratory Past Family/Social History * Past Medical, Surgical, Family and Obstetric Histories reviewed from chart. Blood Type: O+ Rubella: immune RPR/VDRL: Negative GBS Status: Positive HBsAG: Negative OB Admission Exam Physical Exam HEENT: WNL Heart: Rhythm Normal Lungs: Clear, Equal Abdomen: WNL Extremities: Normal Reflexes: Normal Cervical Dilatation: None Effacement: 0% Station: -3 Membranes: Intact Heart Rate: 140's Accelerations: Accelerations Present Decelerations: No Decelerations Varibility: Marked Contractions on Admission: None Last 72 hours Lab Results CBC & BMP 10/04/18 13:00 OB Assessment/Plan Other Assessment: Term gestation Previous x1 Other plan: Repeat CLARA QUICK MD Oct 04, 2018 17:30
[2018-10-04] MEDS ORDERED: KETOROLAC 30 MG INJ IV STA ×2 (17:35→17:39)
[2018-10-04] MEDS ORDERED: ACETAMINOPHEN 500 MG TAB PO STA ×2 (17:35→17:39)
--- NOTE | 2018-10-04 17:35 | OPR ---
Operative Report Planned Procedure Procedure date Oct 04, 2018 Procedure(s) Repeat section Release of omental adhesions Performed by see signature line Manager Personal: LOU RO MD Anesthesiologist: NICOLE ADLER MD Pre-procedure diagnosis Term gestation Previous [id number] Anesthesia Type: [id number] spinal Post-Procedure Post-procedure diagnosis Status post repeat Status post release of omental adhesions Findings Live Baby in OT position Clear amniotic fluid Omental adhesion to anterior surface of the uterus and anterior abdominal wall Normal-appearing right and left fallopian tubes and ovaries Estimated Blood Loss: 600 - 700 mls Specimen(s) none Grafts/Implant(s) none Complication(s) none Pt Condition post procedure: stable Disposition: PACU Procedure Description Under satisfactory anaesthesia a Pfannenstiel incision was made two fingerbreadth above and parallel to the symphysis of pubis around the previous scar and previous scar was removed Incision was extended laterally to the border of the Recti muscles on either sides. Incision was carried down with sharp and blunt dissection until fascia was reached. Anterior Recti muscle fascia was incised in mid portion and incision extended laterally to the border of skin incision. Fascia was mobilized from muscle superiorly and Recti muscles were from midline using sharp and blunt dissection. Peritoneum was visualized; Avoiding bowel and bladder it was incised . Incision was extended superiorly and inferiorly. Bladder blade was placed. Posterior peritoneum covering the lower segment of the uterus and lower segment of the uterus were incised.Low transverse uteine incision was made on lower segment of the uterus. Incision extended laterally to the border of Round Lig. on either sides and baby was delivered from OT. position . Amniotic fluid appeared clear. Cord blood was obtained and cord had 3 vessels . Placenta was delivered spontaneously and appeared intact and complete. Intrauterine cavity was rubbed with a laparotomy sponge. Uterine incision was closed in 2 layers using running stitches of No1 Monocryl. Hemostasis appeared secure. Ovaries and Fallopian tubes were within normal limits. Multiple omental adhesion to anterior abdominal wall and anterior surface of uterus were lysed and ligated using 0 Vicryl stitch. Hemostasis remained secure Announcing needle, lap sponge and instrument count to be correct abdomen was closed in layers as follows: Peritoneum and Recti muscles with running stitches of 2-0 Monocryl. Fascia with running stitch of No 1 PDS. Subcutaneous tissue with running stitches of 2-0 Monocryl and skin was closed using urbano. Patient tolerated the procedure well and was transferred to [facility] in good condition. CLARA QUICK MD Oct 04, 2018 17:35
--- NOTE | 2018-10-04 17:40 | PAC ---
Date/Time of Note Date/Time of Note DATE: 10/04/18 TIME: 17:40 Post-Anesthesia Notes Post-Anesthesia Note Activity: WNL Respiratory function: WNL Cardiovascular function: WNL Mental status: Baseline Pain reasonably controlled: Yes Hydration appropriate: Yes Nausea/Vomiting absent: Yes Comments BP:112/67, P:78, Spo2:100%, T:98,8 NICOLE ADLER MD Oct 04, 2018 17:40
[2018-10-04] MEDS ORDERED: morphine 2 MG INJ IV PRN (18:00)
[2018-10-04] MEDS ORDERED: KETOROLAC 30 MG INJ IV PRN (18:00)
[2018-10-04] MEDS ORDERED: ONDANSETRON 4 MG INJ IV PRN (18:00)
[2018-10-04] MEDS ORDERED: DIPHENHYDRAMINE 50 MG INJ IV PRN (18:00)
[2018-10-04] MEDS ORDERED: AZITHROMYCIN 500MG/NS (PMX) 250 ML IVPB ONE ×2 (18:00)
[2018-10-04] MEDS ORDERED: NALOXONE (0.4 MG/ML) INJ IV PRN (18:00)
[2018-10-04 19:30] VITALS: BP 116/70; PULSE 64; RESP 18
[2018-10-04] MEDS ORDERED: LACTATED RINGER'S 1,000 ML IV SCH (19:45)
[2018-10-04] MEDS ORDERED: NA PHOSPHATE/BIPHOS 133 ML ENEMA PR PRN (20:00)
[2018-10-04] MEDS ORDERED: DEXTROSE 50% 50 ML SYRINGE IV PRN ×2 (20:00)
[2018-10-04] MEDS ORDERED: LANOLIN HPA 1 PKT TOP PRN (20:00)
[2018-10-04] MEDS ORDERED: GLUCAGON 1 MG INJ IM PRN (20:00)
[2018-10-04] MEDS ORDERED: GLUCOSE GEL 15 GRAM TUBE BUCCAL PRN (20:00)
[2018-10-04] MEDS ORDERED: GLUCOSE GEL 15 GRAM TUBE PO PRN ×2 (20:00)
[2018-10-04] MEDS: IBUPROFEN 800 MG TAB PO SCH (21:24)
[2018-10-04] MEDS: SENNA/DOCUSATE NA (8.6MG/50MG) TAB PO SCH (21:42)
[2018-10-04] MEDS: metFORMIN (XR) 500 MG TAB PO SCH (21:42)
[2018-10-05 00:15] VITALS: BP 117/71; PULSE 65; RESP 18
[2018-10-05] MEDS: CEFAZOLIN 2 GM/50 ML (PMX) 50 ML IVPB SCH ×3 (00:16→15:34)
[2018-10-05 03:45] VITALS: BP 99/58; PULSE 63; RESP 18
[2018-10-05] MEDS: IBUPROFEN 800 MG TAB PO SCH ×3 (05:51→21:23)
[2018-10-05] MEDS: LACTATED RINGER'S 1,000 ML IV SCH (05:56)
[2018-10-05] MEDS: CLINDAMYCIN 300 MG CAP PO SCH ×4 (06:02→17:30)
[2018-10-05] MEDS: ACCU-CHEK XX SCH ×8 (07:30→21:24)
[2018-10-05 08:30] VITALS: BP 99/55; PULSE 85; RESP 16
[2018-10-05] MEDS: metFORMIN (XR) 500 MG TAB PO SCH ×2 (09:00→21:23)
[2018-10-05] MEDS: SENNA/DOCUSATE NA (8.6MG/50MG) TAB PO SCH ×2 (09:00→21:23)
[2018-10-05] MEDS ORDERED: BISACODYL 10 MG SUPP PR ONE (10:00)
--- NOTE | 2018-10-05 15:45 | PN ---
Date/Time of Note Date/Time of Note DATE: 10/05/18 TIME: 15:41 Assessment/Plan VTE Prophylaxis VTE Prophylaxis Intervention: ambulation Lines/Catheters IV Catheter Type (from Nrsg): Peripheral IV Assessment/Plan Assessment/Plan Status post postop day #1 Continue to ambulate patient and advance diet Blood sugars on metformin appear normal Subjective 24 Hr Interval Summary No bowel movement but passing flatus Voiding without Mckinney Constitutional: no complaints, improved, ambulates, BM, flatus, urine output Pain Control: well controlled Exam/Review of Systems Vital Signs Vitals Vital Signs Date Temp Pulse Resp B/P (MAP) Pulse Ox O2 O2 Flow FiO2 Time Delivery Rate 10/05/18 98.3 85 16 99/55 (70) Room Air 08:30 Intake and Output 10/04/18 10/04/18 10/05/18 1515:00 23:00 07:00 IntakeIntake Total 1750 ml 1050 ml OutputOutput Total 407 ml 1000 ml BalanceBalance 1343 ml 50 ml Exam Free Text/Dictation Abdomen is soft and nontender with present bowel sounds Abdomen does not seem distended Incision is covered Constitutional: alert, oriented, well developed Psych: no complaints, nl mood/affect Head: normocephalic, atraumatic Eyes: nl conjunctiva, EOMI, nl lids, nl sclera ENMT: nl external ears & nose, nl lips & teeth, nl nasal mucosa & septum, mucosa pink and moist Neck: supple, non-tender Respiratory: clear to auscultation, normal air movement Cardiovascular: regular rate and rhythm, nl pulses Gastrointestinal: soft, nl liver, spleen, non-tender Musculoskeletal: nl extremities to inspection, nl gait and stance Extremities: normal pulses Neurological: [employer] II-XII intact, nl mental status, nl speech, nl strength Skin: nl turgor, rash or lesions Lymph: nl lymph nodes Results Result Diagram: 10/05/18 0745 10/04/18 1300 CLARA QUICK MD Oct 05, 2018 15:45
[2018-10-05] MEDS: HYDROCODONE/APAP (5/325) TAB PO PRN ×2 (17:33→22:29)
[2018-10-05 18:11] VITALS: BP 106/67; PULSE 62; RESP 18
[2018-10-05 21:15] VITALS: BP 109/63; PULSE 72; RESP 18
[2018-10-06] MEDS: CLINDAMYCIN 300 MG CAP PO SCH ×4 (00:03→17:55)
[2018-10-06 04:00] VITALS: BP 105/62; PULSE 62; RESP 18
[2018-10-06] MEDS: IBUPROFEN 800 MG TAB PO SCH ×3 (06:05→21:49)
[2018-10-06] MEDS: HYDROCODONE/APAP (5/325) TAB PO PRN ×3 (06:06→16:37)
[2018-10-06 08:00] VITALS: BP 112/65; PULSE 59; RESP 16
[2018-10-06] MEDS: ACCU-CHEK XX SCH ×8 (08:00→20:05)
[2018-10-06] MEDS: SENNA/DOCUSATE NA (8.6MG/50MG) TAB PO SCH ×2 (09:05→21:48)
[2018-10-06] MEDS: metFORMIN (XR) 500 MG TAB PO SCH ×2 (09:05→21:49)
--- NOTE | 2018-10-06 13:48 | DS ---
Date/Time of Note Date/Time of Note Home today or next day DATE: 10/06/18 TIME: 13:47 Obstetrical Discharge Record Final Diagnosis Final Diagnosis: Term delivered Other Final Diagnosis Status post repeat Section Section: Repeat Complications Gestational Diabetes Condition on Discharge Physical Assessment Last Vitals: See nurse's notes Voiding: Yes Bowel Movement: Yes Breast: Soft, non-tender, Filling Fundus: Firm Abdomen and Incision: Abdomen is soft and nontender with present bowel sounds Incision is healing well without induration and or Calf Tenderness: No Patient Condition: Good CLARA QUICK MD Oct 06, 2018 13:48
--- NOTE | 2018-10-06 13:50 | DS ---
Date/Time of Note Date/Time of Note DATE: 10/06/18 TIME: 13:48 Discharge Summary Admission/Discharge Info Admit Date/Time Oct 04, 2018 at 12:00 Discharge Date/Time October 07 or October 06, 2018 Discharge Diagnosis Status post repeat delivery Patient Condition: Good Procedures Repeat section Hx of Present Illness 28-year-old female underwent repeat section Hospital Course She had uncomplicated postop course Tolerating diet well and was ambulating without complications Discharge home on his second or third day good prognosis and condition Home Meds Reported Medications Insulin Glargine* (Lantus*) 100 Unit/Ml Soln, 14 UNIT SC AC DINNER, #1 VIAL 08/30/18 Insulin Glargine* (Lantus*) 100 Unit/Ml Soln, 12 UNIT SC AC BREAKFAST, #1 VIAL 08/30/18 Insulin Isophan/Regular (Humulin 70/30) 100 Units/Ml Susp, 24 UNIT SC HS, EA 08/30/18 Insulin Isophan/Regular (Humulin 70/30) 100 Units/Ml Susp, 22 UNIT SC AC BREAKFAST, EA 08/30/18 Ferrous Sulfate (Iron) 134 Mg Tablet, 134 MG PO DAILY, TAB 08/30/18 Calcium Carbonate* (Calcium Carbonate*) 600 MG Ca Tab, 600 MG PO DAILY, TAB 08/30/18 [id number] ( ) 1 Each Tablet, 1 TAB PO DAILY, TAB 07/14/18 Follow-up Plan Was asked to refer to clinic in 3 4 days for staple removal and to have pelvic rest no hard activity for 2 months Primary Care Provider Not On Staff Doctor Time spent on discharge: > 30 minutes Pending Labs Laboratory Tests Test 10/05/18 15:42 10/05/18 21:21 10/06/18 08:28 Bedside Glucose 142 mg/dL (70-220) 159 mg/dL (70-220) 99 mg/dL (70-220) CLARA QUICK MD Oct 06, 2018 13:50
[2018-10-06] MEDS ORDERED: ACETAMINOPHEN 325 MG TAB PO PRN (14:00)
[2018-10-06 15:35] VITALS: BP 116/69; PULSE 70; RESP 18
[2018-10-06 19:50] VITALS: BP 118/60; PULSE 70; RESP 18
--- NOTE | 2018-10-06 20:03 | PD.PPDC ---
[facility] Discharge Instruction Provider Information Physician Information 28-year-old female had repeat Diagnosis [id number] Final Diagnosis: Flcvn0s Status post repeat Condition [id number] Patient Condition: Kmaog4i Good Diet [id number] Diet: [id number] Resume Regular Diet Activity/Restrictions [id number] Activity: Wjfmc4f May Shower [id number] Restrictions: [id number] No Exercising No Lifting Nothing in the Vagina [id number] Return to Work or School: Ptpcq0b Dec 06, 2018 Wound/Drain Care Instructions [id number] Wound/Drain Care Instructions: [id number] Keep clean and dry Follow-up Follow-up with Physician: 2, 4, Week/Weeks (In clinic) Return to clinic for [id number] OB Instructions: Luzgg8c Breast Tenderness Depression Comment: Pelvic rest and no hard activity for 2 months [id number] Surgical Instructions: Jotqy5i Incisional Drainage Incisional Redness CLARA QUICK MD Oct 06, 2018 20:03
[2018-10-07 03:25] VITALS: BP 116/60; PULSE 64; RESP 19
[2018-10-07] MEDS: OXYCODONE/ACETAMINOPHEN (5/325) TAB PO PRN ×3 (03:25→13:23)
[2018-10-07] MEDS: CLINDAMYCIN 300 MG CAP PO SCH ×3 (05:34→13:19)
[2018-10-07] MEDS: IBUPROFEN 800 MG TAB PO SCH ×2 (05:34→13:18)
[2018-10-07] MEDS: ACCU-CHEK XX SCH ×4 (07:30→16:30)
[2018-10-07 08:00] VITALS: BP 108/61; PULSE 65; RESP 19
[2018-10-07] MEDS ORDERED: MEASLES,MUMPS,RUBELLA VACCINE INJ SC* ONE (09:00)
[2018-10-07] MEDS ORDERED: DIPHTH/TET/ACEL PERTUSS (ADULT) 0.5 ML VIAL IM* ONE (09:00)
[2018-10-07] MEDS: metFORMIN (XR) 500 MG TAB PO SCH (09:13)
[2018-10-07] MEDS: SENNA/DOCUSATE NA (8.6MG/50MG) TAB PO SCH (09:13)
== END 2018-10-07 17:48 | disposition home or self-care (01) | DRG 788 ==
LOC: L-D 12:00 → PP1 19:48
PROVIDERS: ADMIT Obstetrics & Gynecology; ATTEND Obstetrics & Gynecology
PROC: 0UN90ZZ Release Uterus, Open Approach (ICD-10-PCS; 2018-10-04)
PROC: 10D00Z1 Extraction of Products of Conception, Low, Open Approach (ICD-10-PCS; principal; 2018-10-04 14:00)
DX: O34.211 Maternal care for low transverse scar from previous cesarean delivery (principal); O99.89 Other specified diseases and conditions complicating pregnancy, childbirth and the puerperium; N73.6 Female pelvic peritoneal adhesions (postinfective); O24.92 Unspecified diabetes mellitus in childbirth; O99.214 Obesity complicating childbirth; Z3A.39 39 weeks gestation of pregnancy; Z37.0 Single live birth
CPT/HCPCS: 82947; 82962; 85025; 85610; 85730; 86592; 86850; 86900; 86901; 87340; 99464; J0456; J0690; J1200; J1885; J2274; J2405; J2590; J7120